=== PATIENT | female | born 1990 | race Two or more races ===

== ENCOUNTER 2018-03-10 10:55 | Emergency (ER) | payer OTHER, MEDICAID ==
[2018-03-10 11:09] VITALS: BP 138/95
--- NOTE | 2018-03-10 12:05 | ED Physician Documentation ---
PD HPI ANIMAL BITE - Stated complaint Stated Complaint: DOG BITE R HAND - Chief complaint Chief Complaint: Ext Problem - History obtained from History obtained from: Patient - History of Present Illness Location of injury(ies): Right hand Details of the event: Dog, Bite, Well appearing, Immunized, Animal can be observed (animal is at [employer] and patient was caring for it, feeding it. The dog bit at her hand and had good hold for a moment. 2 puncture wounds on hand.) Timing - onset: Today (she washed the wound right after) Timing - details: Abrupt onset Worsened by: Palpating. No: Moving Associated symptoms: No: Weakness, Numbness, Tingling Contributing factors: No: Immunocompromised Similar symptoms before: Has not had sx before Recently seen: Not recently seen Review of Systems Constitutional: denies: Fever, Chills Nose: denies: Rhinorrhea / runny nose, Congestion Throat: denies: Sore throat Respiratory: denies: Cough GI: denies: Nausea, Vomiting Neurologic: denies: Focal weakness, Numbness PD PAST MEDICAL HISTORY - Past Medical History Past Medical History: No - Past Surgical History Past Surgical History: No - Present Medications Home Medications: Ambulatory Orders Medication Instructions Recorded Confirmed Amox/Clav 875/125 [Augmentin] 1 each PO BID #10 tablet 03/10/18 - Allergies Allergies/Adverse Reactions: Allergies Allergy/AdvReac Type Severity Reaction Status Date / Time No Known Drug Allergies Allergy Verified 03/10/18 11:09 - Social History Does the pt smoke?: No Smoking Status: Never smoker PD ED PE NORMAL - Vitals Vital signs reviewed: Yes - General General: Alert and oriented X 3, No acute distress, Well developed/nourished - Derm Derm: Normal color, Warm and dry - Extremities Extremities: Other (right hand with puncture lac dorsal over first MC shaft area and another wound palmar similar area. Both are 3-4 mm size and no FB nor bleeding right now. ) - Neuro Neuro: Alert and oriented X 3, No motor deficit, No sensory deficit Results - Vitals Vitals: Oxygen O2 Source Room air PD MEDICAL DECISION MAKING - ED course Complexity details: considered differential (cleansed under running water right after injury. Wounds only needed steri strips. Will place on Augmentin for 5 days. ), d/w patient - Sepsis Event Vital Signs: Oxygen O2 Source Room air Departure - Departure Disposition: 01 Home, Self Care Clinical Impression: Dog bite of hand Qualifiers: Encounter type: initial encounter Laterality: right Qualified Code(s): S61.451A - Open bite of right hand, initial encounter Condition: Stable Record reviewed to determine appropriate education?: Yes Instructions: ED Bite Dog Prescriptions: Amox/Clav 875/125 [Augmentin] 1 each PO BID #10 tablet Comments: You did a good job by cleaning the wound right off after the injury. Keep the area fairly clean and dry with some handwashing okay. Allow the Steri-Strips and glue to fall off on their own after a few days and that should be time enough for the wounds to seal up better. Augmentin twice daily for 3-5 days to reduce the chance of infection. Recheck if signs of infection. Tylenol or ibuprofen if needed for pains. Regularly use of the hand is okay based on comfort. Discharge Date/Time: 03/10/18 12:33
[2018-03-10] MEDS ORDERED: AMOX/CLAV 875 MG/125 MG TABLET PO STA (12:16)
[2018-03-10] MEDS ORDERED: IBUPROFEN 600 MG TABLET PO STA (12:16)
== END 2018-03-10 12:33 | disposition home or self-care (01) ==
LOC: ED 10:55
DX: S61.451A Open bite of right hand, initial encounter (principal); W54.0XXA Bitten by dog, initial encounter; Y93.K9 Activity, other involving animal care; Y92.89 Other specified places as the place of occurrence of the external cause; Y99.0 Civilian activity done for income or pay
CPT/HCPCS: 1040M; 99283; A9270